=== PATIENT | male | born 1950 | race Caucasian/White ===

== ENCOUNTER → 2019-01-26 | Outpatient (CLI) | payer MEDICARE, MEDICAID, OTHER ==
[~2019-01-26] VITALS: Ht 182.9 cm; Wt 127.0 kg
[~2019-01-26] MED LIST: LIDOCAINE 1% INJ 20 ML 20 ML VIAL INJ ONE; LIDOCAINE 1% INJ 20 ML 20 ML VIAL ONE
--- NOTE | 2019-01-26 13:29 | Diagnostic Imaging Report ---
Indication: Left thyroid nodule. Patient presents for ultrasound-guided fine needle aspiration. Patient was brought to the procedure room and placed on the bed in the supine position. Ultrasound imaging over the left neck was performed to evaluate appropriate entry site. A procedure was technically extremely challenging due to the patient's inability to properly extend the neck today. The lesion seen on outside study in the left lobe of the thyroid was very difficult to visualize because of limited positioning today. Left neck was prepped and draped in the usual sterile fashion. Small amount of 1% lidocaine was utilized for local anesthesia. Total of 4 passes were made into the left lobe nodule with 25-gauge needle and fine needle aspiration technique was utilized. Needle was withdrawn and hemostasis was obtained. Patient tolerated the procedure well and left the department in stable condition. Impression: Technically very challenging left thyroid nodule FNA due to patient's significant limitation in positioning and neck extension. Pathology results are currently pending. Dictated by: Dictated on workstation # [id number]
== END ==
LOC: RAD 11:35
PROVIDERS: ATTEND Surgery
DX: E04.1 Nontoxic single thyroid nodule (principal)
CPT/HCPCS: 88173; 88305